=== PATIENT | female | born 1985 | race Caucasian/White ===

== ENCOUNTER 2016-08-26 11:23 | Emergency (ER) | payer OTHER ==
[2016-08-26 12:07] VITALS: BP 117/68
--- NOTE | 2016-08-26 13:01 | UC ---
Throat Pain/Nasal Ari HPI - HPI Summary HPI Summary: fever sinus congestion ear pain ans sore throat for the past few days, hx of asthma and is out of ventolin. - History of Current Complaint Chief Complaint: UCRespiratory Stated Complaint: EARS,NOSE,THROAT PAIN Time Seen by Provider: 08/26/16 12:33 Hx Obtained From: Patient Hx Last Menstrual Period: Hysterectomy ?: No Onset/Duration: Sudden Onset, Lasting Days Severity: Moderate Associated Signs & Symptoms: Positive: Dysphagia, Sinus Discomfort, Nasal Discharge, Fever - Epiglottits Risk Factors Epiglottis Risk Factors: Negative - Allergies/Home Medications Allergies/Adverse Reactions: Allergies Allergy/AdvReac Type Severity Reaction Status Date / Time No Known Allergies Allergy Verified 08/26/16 12:06 Home Medications: Home Medications Albuterol HFA INHALER* [Ventolin HFA Inhaler*] 1 puff INH DAILY 08/26/16 [ History Confirmed 08/26/16] LoraTADine TAB(NF) [Claritin 10 MG TAB(NF)] 10 mg PO DAILY 08/26/16 [History Confirmed 08/26/16] PMH/Surg Hx/FS Hx/Imm Hx Previously Healthy: Yes Endocrine History Of: Denies: Diabetes Cardiovascular History Of: Denies: Cardiac Disorders Respiratory History Of: Reports: Bronchitis GI/ History Of: Denies: Gastroesophageal Reflux - Surgical History Surgical History: Yes Surgery Procedure, Year, and Place: HYSTERECTOMY, CSECTION, 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, 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 - Family History Known Family History: Positive: Hypertension, Renal Disease - Social History Alcohol Use: Rare Substance Use Type: None Smoking Status (MU): Heavy Every Day Tobacco Smoker Type: Cigarettes Amount Used/How Often: 1 ppd - Immunization History Most Recent Influenza Vaccination: none Review of Systems Constitutional: Fever Skin: Negative Eyes: Negative ENT: Sore Throat, Ear Ache, Nasal Discharge Respiratory: Shortness Of Breath, Cough Cardiovascular: Negative Gastrointestinal: Negative Genitourinary: Negative Motor: Negative Neurovascular: Negative Musculoskeletal: Negative Neurological: Headache Psychological: Negative All Other Systems Reviewed And Are Negative: Yes Physical Exam Triage Information Reviewed: Yes Appearance: Well-Nourished, Ill-Appearing, Pain Distress Vital Signs: Initial Vital Signs Temp 98.6 F 08/26/16 12:02 Pulse 95 08/26/16 12:02 Resp 16 08/26/16 12:02 BP 117/68 08/26/16 12:02 Pulse Ox 98 08/26/16 12:02 Vital Signs Reviewed: Yes Eye Exam: Normal Eyes: Positive: Conjunctiva Clear ENT: Positive: Pharyngeal erythema, Nasal congestion, Nasal drainage, TM red, Tonsillar swelling Dental Exam: Normal Neck: Positive: Supple, Nontender, Enlarged Nodes @ - left cervical Respiratory Exam: Normal Respiratory: Positive: Chest non-tender, Lungs clear, Normal breath sounds Cardiovascular Exam: Normal Cardiovascular: Positive: RRR, No Murmur, Pulses Normal Abdominal Exam: Normal Abdomen Description: Positive: Nontender, No Organomegaly, Soft Bowel Sounds: Positive: Present Musculoskeletal Exam: Normal Musculoskeletal: Positive: Other: - right arm in sling from pervious injury, otherwise moves all extremities without difficulty Neurological Exam: Normal Neurological: Positive: Alert, Muscle Tone Normal Psychological Exam: Normal Skin Exam: Normal Throat Pain/Nasal Course/Dx - Course Course Of Treatment: hx obtained, exam performed, meds reviewed, treated for sinusitis and asthma - Differential Dx/Diagnosis Differential Diagnosis/HQI/PQRI: Influenza, Laryngitis, Otitis Media, Pharyngitis, Sinusitis, URI Provider Diagnoses: sinusitis. fever Discharge - Discharge Plan Condition: Stable Disposition: HOME Prescriptions: Albuterol HFA INHALER* [Ventolin HFA Inhaler*] 2 puff INH Q4H PRN #1 mdi PRN Reason: Cough Amoxicillin/Clavulanate TAB* [Augmentin TAB 875*] 875 mg PO BID #20 tab Patient Education Materials: Sinusitis (ED) Referrals: Kennedi Corey MD [Primary Care Provider] - Additional Instructions: 1. take the medication as prescribed. 2. increase your fluid intake and get plenty of rest 3. Ibuprofen or tylenol for pain and fever.
== END 2016-08-26 12:55 | disposition home or self-care (01) ==
LOC: UCCORT 11:23
DX: J32.9 Chronic sinusitis, unspecified (principal); F17.210 Nicotine dependence, cigarettes, uncomplicated
CPT/HCPCS: 99212; G0463

== ENCOUNTER 2016-12-28 11:21 | Emergency (ER) | payer OTHER ==
[2016-12-28 12:05] VITALS: BP 155/101
--- NOTE | 2016-12-28 13:13 | UC ---
Respiratory Complaint HPI - HPI Summary HPI Summary: Pt presents with c/o cough, wheezing, PND and sore throat X 7 days. Pt reports th cough is worse at night. Sore throat improves after waking and clearing throat - History of Current Complaint Chief Complaint: UCGeneralIllness Stated Complaint: EAR PAIN, CONGESTION, SORE THROAT Time Seen by Provider: 12/28/16 12:03 Hx Obtained From: Patient Hx Last Menstrual Period: Hysterectomy ?: No Onset/Duration: Gradual Onset, Lasting Days Timing: Constant Severity Initially: Mild Severity Currently: Mild Pain Intensity: 5 Pain Scale Used: 0-10 Numeric Character: Cough: Nonproductive Aggravating Factors: Recumbent Position Alleviating Factors: Spontaneous Resolution Associated Signs And Symptoms: Positive: Negative Related History: Seasonal Allergies - Risk Factors Pulmonary Embolism Risk Factors: Negative Cardiac Risk Factors: Negative Pseudomonas Risk Factors: Negative Tuberculosis Risk Factors: Negative - Allergies/Home Medications Allergies/Adverse Reactions: Allergies Allergy/AdvReac Type Severity Reaction Status Date / Time No Known Allergies Allergy Verified 12/28/16 12:05 Home Medications: Home Medications Cholecalciferol TAB* [Vitamin D TAB*] 2,000 units PO DAILY 12/28/16 [History Confirmed 12/28/16] PMH/Surg Hx/FS Hx/Imm Hx Previously Healthy: Yes - Surgical History Surgical History: Yes Surgery Procedure, Year, and Place: HYSTERECTOMY. CSECTION. 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 - Family History Known Family History: Positive: Hypertension, Renal Disease - Social History Occupation: Employed Full-time Lives: With Family Alcohol Use: Rare Substance Use Type: None Smoking Status (MU): Heavy Every Day Tobacco Smoker Type: Cigarettes Amount Used/How Often: 1 ppd Have You Smoked in the Last Year: Yes When Did the Patient Quit Smoking/Using Tobacco: started age 16 - Immunization History Most Recent Influenza Vaccination: none Review of Systems Constitutional: Negative Skin: Negative Eyes: Negative ENT: Sore Throat Respiratory: Cough Cardiovascular: Negative Gastrointestinal: Negative Genitourinary: Negative Motor: Negative Neurovascular: Negative Musculoskeletal: Negative Neurological: Negative Psychological: Negative Is Patient Immunocompromised?: No All Other Systems Reviewed And Are Negative: Yes Physical Exam Triage Information Reviewed: Yes Appearance: Well-Appearing Vital Signs: Initial Vital Signs Temp 98.3 F 12/28/16 12:02 Pulse 76 12/28/16 12:02 Resp 16 12/28/16 12:02 BP 155/101 12/28/16 12:02 Pulse Ox 100 12/28/16 12:02 Eye Exam: Normal ENT Exam: Normal Neck exam: Normal Respiratory Exam: Normal Cardiovascular Exam: Normal Musculoskeletal Exam: Normal Neurological Exam: Normal Psychological Exam: Normal Skin Exam: Normal UC Diagnostic Evaluation - Laboratory O2 Sat by Pulse Oximetry: 100 Respiratory Course/Dx - Differential Dx/Diagnosis Differential Diagnosis/HQI/PQRI: Bronchitis Provider Diagnoses: Post viral cough Discharge - Discharge Plan Condition: Stable Disposition: HOME Prescriptions: Benzonatate CAP* [Tessalon 100 MG CAP*] 100 mg PO TID PRN #21 cap PRN Reason: Cough Cetirizine* [ZyrTEC 10 MG TAB*] 10 mg PO DAILY #30 tab Patient Education Materials: Acute Cough (ED) Referrals: Kennedi Corey MD [Primary Care Provider] - Additional Instructions: Please follow up with your PCP or return to clinic as needed.
== END 2016-12-28 12:50 | disposition home or self-care (01) ==
LOC: UCCORT 11:21
DX: R05 Cough (principal); F17.210 Nicotine dependence, cigarettes, uncomplicated
CPT/HCPCS: 99212; G0463

== ENCOUNTER 2017-03-07 09:31 | Emergency (ER) | payer OTHER ==
--- NOTE | 2017-03-07 10:04 | UC ---
Respiratory Complaint HPI - HPI Summary HPI Summary: 31 YEAR OLD FEMALE PRESENTS WITH DRY COUGH AND CHEST CONGESTION. - History of Current Complaint Stated Complaint: COUGH, CHEST CONGESTION Time Seen by Provider: 03/07/17 10:03 Hx Obtained From: Patient Hx Last Menstrual Period: Hysterectomy Onset/Duration: Sudden Onset Severity Initially: Moderate Severity Currently: Moderate Character: Cough: Nonproductive - Allergies/Home Medications Allergies/Adverse Reactions: Allergies Allergy/AdvReac Type Severity Reaction Status Date / Time environmental Allergy Eyes Uncoded 03/07/17 10:06 Itchy/Swollen/Red/Watery PMH/Surg Hx/FS Hx/Imm Hx Previously Healthy: Yes - Surgical History Surgical History: Yes Surgery Procedure, Year, and Place: HYSTERECTOMY. CSECTION. 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 - Family History Known Family History: Positive: Hypertension, Renal Disease - Social History Alcohol Use: Rare Substance Use Type: None Smoking Status (MU): Heavy Every Day Tobacco Smoker Type: Cigarettes Amount Used/How Often: 1 ppd Have You Smoked in the Last Year: Yes When Did the Patient Quit Smoking/Using Tobacco: started age 16 - Immunization History Most Recent Influenza Vaccination: none Review of Systems Constitutional: Negative Skin: Negative Eyes: Negative ENT: Sore Throat, Nasal Discharge, Sinus Congestion, Sinus Pain/Tenderness Respiratory: Cough Cardiovascular: Negative Gastrointestinal: Negative Genitourinary: Negative Motor: Negative Neurovascular: Negative Musculoskeletal: Negative Neurological: Negative Psychological: Negative All Other Systems Reviewed And Are Negative: Yes Physical Exam Triage Information Reviewed: Yes Eye Exam: Normal ENT Exam: Normal Dental Exam: Normal Neck exam: Normal Neck: Positive: 1 Respiratory Exam: Normal Cardiovascular Exam: Normal Abdominal Exam: Normal Musculoskeletal Exam: Normal Neurological Exam: Normal Psychological Exam: Normal Skin Exam: Normal Respiratory Course/Dx - Differential Dx/Diagnosis Provider Diagnoses: CHEST CONGESTION. COUGH Discharge - Discharge Plan Condition: Stable Disposition: HOME Prescriptions: Albuterol HFA INHALER* [Ventolin HFA Inhaler*] 1 puff INH Q6H PRN #1 mdi PRN Reason: Wheezing Amoxicillin/Clavulanate TAB* [Augmentin TAB 875*] 875 mg PO BID #20 tab Guaifenesin-Codeine [Cheratussin AC] 1 teasp PO BEDTIME PRN #120 ml MDD 5 ml PRN Reason: Cough LoraTADine TAB(NF) [Claritin 10 MG TAB(NF)] 10 mg PO DAILY #30 tab Patient Education Materials: Acute Cough (ED) Referrals: Kennedi Corey MD [Primary Care Provider] -
[2017-03-07 10:06] VITALS: BP 122/82
== END 2017-03-07 10:22 | disposition home or self-care (01) ==
LOC: UCCORT 09:31
DX: R05 Cough (principal); R09.89 Other specified symptoms and signs involving the circulatory and respiratory systems
CPT/HCPCS: 99212; G0463

== ENCOUNTER 2017-04-14 10:52 | Emergency (ER) | payer OTHER | END 2017-04-14 11:06 | disposition left against medical advice (07) | LOC: UCCORT 10:52 | DX: R07.0 Pain in throat (principal); J34.89 Other specified disorders of nose and nasal sinuses; Z53.21 Procedure and treatment not carried out due to patient leaving prior to being seen by health care provider ==

== ENCOUNTER 2018-02-12 08:32 | Emergency (ER) | payer OTHER ==
[2018-02-12 09:13] VITALS: BP 121/84
--- NOTE | 2018-02-12 10:08 | ED ---
Respiratory - HPI Summary HPI Summary: 32 yr old female with the complaint of sinus congestion, post nasal drip, cough and chest congestion. Onset 2-3 days ago. Everyone in the family is ill with similar symptoms. - History of Current Complaint Chief Complaint: UCRespiratory Stated Complaint: SORE THROAT, CONGESTION Time Seen by Provider: 02/12/18 09:27 Pain Intensity: 0 - Allergy/Home Medications Allergies/Adverse Reactions: Allergies Allergy/AdvReac Type Severity Reaction Status Date / Time environmental Allergy Eyes Uncoded 02/12/18 09:10 Itchy/Swollen/Red/Watery Home Medications: Home Medications Ziprasidone CAP* [Geodon CAP*] 40 mg PO BID 02/12/18 [History Confirmed 02/12/18 ] PMH/Surg Hx/FS Hx/Imm Hx Endocrine/Hematology History: Denies: Hx Diabetes - Surgical History Surgery Procedure, Year, and Place: HYSTERECTOMY. CSECTION. 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 Infectious Disease History: No Infectious Disease History: Denies: Traveled Outside the [place] in Last 30 Days - Family History Known Family History: Positive: Hypertension, Renal Disease - Social History Lives: With Family Alcohol Use: None Substance Use Type: Reports: None Smoking Status (MU): Heavy Every Day Tobacco Smoker Type: Cigarettes Amount Used/How Often: 1/2ppd Have You Smoked in the Last Year: Yes Review of Systems Constitutional: Negative Positive: Cough All Other Systems Reviewed And Are Negative: Yes Physical Exam Triage Information Reviewed: Yes Vital Signs On Initial Exam: Initial Vitals Temp Pulse Resp BP Pulse Ox 98.7 F 106 24 121/84 100 02/12/18 09:09 02/12/18 09:09 02/12/18 09:09 02/12/18 09:09 02/12/18 09:09 Vital Signs Reviewed: Yes Appearance: Positive: Well-Appearing, No Pain Distress Skin: Positive: Warm Head/Face: Positive: Normal Head/Face Inspection Eyes: Positive: EOMI ENT: Positive: Nasal congestion, Nasal drainage, TMs normal, Sinus tenderness - frontal Respiratory/Lung Sounds: Positive: Clear to Auscultation, Breath Sounds Present Cardiovascular: Positive: RRR. Negative: Murmur Abdomen Description: Positive: Nontender Musculoskeletal: Positive: Strength/ROM Intact Neurological: Positive: Sensory/Motor Intact, Alert, Oriented to Person Place, Time, CN Intact II-III Psychiatric: Positive: Normal - Audie Coma Scale Best Eye Response: 4 - Spontaneous Best Motor Response: 6 - Obeys Commands Best Verbal Response: 5 - Oriented Coma Scale Total: 15 Diagnostics - Vital Signs Vital Signs Temp Pulse Resp BP Pulse Ox 02/12/18 09:09 98.7 F 106 24 121/84 100 - Laboratory Lab Statement: Any lab studies that have been ordered have been reviewed, and results considered in the medical decision making process. Disposition - Course Course Of Treatment: 32 yr old with sinus infection, and cough. Rx with Amox and mdi - Diagnoses Provider Diagnoses: Sinusitis, Cough Discharge - Sign-Out/Discharge Documenting (check all that apply): Patient Departure All imaging exams completed and their final reports reviewed: No Studies - Discharge Plan Condition: Good Disposition: HOME Prescriptions: Albuterol HFA INHALER* [Ventolin HFA Inhaler*] 1 - 2 puff INH Q6H PRN #1 mdi PRN Reason: Cough Cefdinir [Cefdinir 300 MG CAP] 300 mg PO BID #20 cap Patient Education Materials: Sinusitis (ED), Acute Bronchitis (ED) Referrals: Kennedi Corey MD [Primary Care Provider] - - Billing Disposition and Condition Condition: GOOD Disposition: Home
== END 2018-02-12 10:20 | disposition home or self-care (01) ==
LOC: UCCORT 08:32
DX: J32.9 Chronic sinusitis, unspecified (principal); F17.210 Nicotine dependence, cigarettes, uncomplicated; R05 Cough
CPT/HCPCS: 99212; G0463

== ENCOUNTER 2018-03-03 08:33 | Emergency (ER) | payer OTHER ==
[2018-03-03 08:57] VITALS: BP 121/71
--- NOTE | 2018-03-03 09:11 | UC ---
Respiratory Complaint HPI - HPI Summary HPI Summary: cough x 3 days + fever, chills, body aches nasal congestion , bilateral ear pain and sore throat - History of Current Complaint Chief Complaint: UCGeneralIllness Stated Complaint: SORE THROAT EARS Time Seen by Provider: 03/03/18 08:43 Hx Obtained From: Patient Hx Last Menstrual Period: august 2014 Onset/Duration: Gradual Onset, Lasting Days - 3, Still Present Timing: Constant Severity Initially: Moderate Severity Currently: Moderate Pain Intensity: 5 Character: Cough: Productive Aggravating Factors: Exertion, Deep Breaths Associated Signs And Symptoms: Positive: Fever, Chills, Pleuritic Chest Pain, Wheezing, URI, Nasal Congestion. Negative: Hemoptysis, Dizziness, Calf Pain, Calf Swelling - Allergies/Home Medications Allergies/Adverse Reactions: Allergies Allergy/AdvReac Type Severity Reaction Status Date / Time environmental Allergy Eyes Uncoded 03/03/18 08:44 Itchy/Swollen/Red/Watery PMH/Surg Hx/FS Hx/Imm Hx Previously Healthy: Yes - Surgical History Surgical History: Yes Surgery Procedure, Year, and Place: HYSTERECTOMY. CSECTION. 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 - Family History Known Family History: Positive: Hypertension, Renal Disease - Social History Alcohol Use: None Substance Use Type: None Smoking Status (MU): Heavy Every Day Tobacco Smoker Type: Cigarettes Amount Used/How Often: 1/2ppd Have You Smoked in the Last Year: Yes When Did the Patient Quit Smoking/Using Tobacco: started age 16 - Immunization History Most Recent Influenza Vaccination: none Most Recent Tetanus Shot: UTD Review of Systems All Other Systems Reviewed And Are Negative: Yes Constitutional: Positive: Fever, Chills, Fatigue Skin: Positive: Negative Eyes: Positive: Negative ENT: Positive: Sore Throat, Ear Ache, Nasal Discharge Respiratory: Positive: Cough Cardiovascular: Positive: Negative Gastrointestinal: Positive: Negative Is Patient Immunocompromised?: No Physical Exam Triage Information Reviewed: Yes Appearance: Well-Appearing, No Pain Distress, Well-Nourished Vital Signs: Initial Vital Signs Temp 97.8 F 03/03/18 08:45 Pulse 110 03/03/18 08:45 Resp 22 03/03/18 08:45 BP 121/71 03/03/18 08:45 Pulse Ox 100 03/03/18 08:45 Vital Signs Reviewed: Yes Eye Exam: Normal Eyes: Positive: Conjunctiva Clear ENT: Positive: Normal ENT inspection, Hearing grossly normal, Pharynx normal, Nasal congestion, TMs normal. Negative: TM bulging, TM dull, TM red Neck: Positive: Supple, Nontender, No Lymphadenopathy Respiratory: Positive: Chest non-tender, Wheezing Cardiovascular: Positive: RRR, No Murmur, Pulses Normal Abdominal Exam: Normal Skin Exam: Normal UC Diagnostic Evaluation - Laboratory O2 Sat by Pulse Oximetry: 100 Respiratory Course/Dx - Differential Dx/Diagnosis Provider Diagnoses: Bronchitis Discharge - Sign-Out/Discharge Documenting (check all that apply): Patient Departure All imaging exams completed and their final reports reviewed: No Studies - Discharge Plan Condition: Stable Disposition: HOME Prescriptions: Azithromycin TAB* [Zithromax TAB (Z-KAUSHAL) 250 mg #6 tabs] 2 tab PO .TODAY, THEN 1 DAILY #1 kaushal Benzonatate CAP* [Tessalon 100 MG CAP*] 100 mg PO TID PRN #21 cap PRN Reason: Cough Patient Education Materials: Bronchiolitis (ED) Referrals: Kennedi Corey MD [Primary Care Provider] - If Needed - Billing Disposition and Condition Condition: STABLE Disposition: Home
== END 2018-03-03 09:10 | disposition home or self-care (01) ==
LOC: UCCORT 08:33
DX: J40 Bronchitis, not specified as acute or chronic (principal); F17.210 Nicotine dependence, cigarettes, uncomplicated; Z91.048 Other nonmedicinal substance allergy status
CPT/HCPCS: 99212; G0463